=== PATIENT | male | born 1945 | race Caucasian/White ===

== ENCOUNTER 2016-12-21 09:50 | Emergency (ER) | payer MEDICAID ==
[~2016-12-21] VITALS: Ht 185.4 cm; Wt 94.5 kg
[2016-12-21 09:51] VITALS: BP 152/85; PULSE 63; RESP 16; TEMP 98.4; O2SAT 98
--- NOTE | 2016-12-21 10:01 | PD ---
HPI Chief Complaint: Skin Problem Time Seen by Provider: 10:01 Travel History International Travel<30 days: No Contact w/Intl Traveler<30days: No Traveled to known affect area: No History of Present Illness HPI 71-year-old male came to the emergency room for a right distal leg injury that' s not healing. Patient says this happened about 10 days ago at work. He was hit by a forklift. He tried to take care of the abrasion at home but has been on his feet the entire time at work every day and wears high boots which rubs against the abrasion. Now it has started to look infected. Also his foot and ankle swells up quite a bit by the end of the day. At night he tries to keep his leg elevated and in the morning it appears to be back to somewhat normal again. However the wound is not healing at this point and hence he is in the emergency room. He was slightly tachycardic but otherwise vital signs were stable. Patient says that he is otherwise a healthy person. He does not smoke. [facility] Past Medical History Narrative Medical List of his past medical, surgical, social history was reviewed from the nursing note. Social History Tobacco Use: No Allergies-Medications (Allergen,Severity, Reaction): Coded Allergies: Iodine (Verified Allergy, Unknown, Anaphylaxis, 12/21/16) Shellfish (Verified Allergy, Unknown, Anaphylaxis, 12/21/16) Comments List of his allergies reviewed from the nursing note. Reported Meds & Prescriptions Reported Meds & Active Scripts Active Bactrim DS (Sulfamethoxazole-Trimethoprim) 800-160 Mg Tab 1 Tab PO BID Narrative Medication Awaiting for the nurse to do the med reconciliation. Review of Systems Except as stated in HPI: all other systems reviewed are Neg Physical Exam Narrative GENERAL: Awake, alert, mild distress SKIN: Focused skin assessment warm/dry. Right lateral aspect of the distal part of the leg and the ankle is swollen, erythematous with a large scab in the center and some ulceration. There is some dried secretion from it. No active secretion currently. Distal pulses and sensation intact. The dorsum of the foot is slightly swollen and erythematous as well. HEAD: Atraumatic. Normocephalic. EYES: Pupils equal and round. No scleral icterus. No injection or drainage. ENT: No nasal bleeding or discharge. Mucous membranes pink and moist. NECK: Trachea midline. No JVD. CARDIOVASCULAR: Regular rate and rhythm. No murmur appreciated. RESPIRATORY: No accessory muscle use. Clear to auscultation. Breath sounds equal bilaterally. GASTROINTESTINAL: Abdomen soft, non-tender, nondistended. Hepatic and splenic margins not palpable. MUSCULOSKELETAL: No obvious deformities. No clubbing. No cyanosis. No edema. NEUROLOGICAL: Awake and alert. No obvious cranial nerve deficits. Motor grossly within normal limits. Normal speech. PSYCHIATRIC: Appropriate mood and affect; insight and judgment normal. Data Data Last Documented VS Vital Signs Date Time Temp Pulse Resp B/P Pulse Ox O2 Delivery O2 Flow Rate FiO2 12/21/16 10:36 Nasal Cannula 2 12/21/16 10:36 99 12/21/16 09:51 98.4 63 16 152/85 Orders Complete Blood Count With Diff (12/21/16 10:08) Comprehensive Metabolic Panel (12/21/16 10:08) Lactic Acid Sepsis Protocol (12/21/16 10:08) Blood Culture (12/21/16 10:08) Blood Glucose (12/21/16 10:08) Ecg Monitoring (12/21/16 10:08) Iv Access Insert/Monitor (12/21/16 10:08) Oximetry (12/21/16 10:08) Oxygen Administration (12/21/16 10:08) Vancomycin Inj (Vancomycin Inj) (12/21/16 10:08) Labs Laboratory Tests Test 12/21/16 10:15 White Blood Count 7.3 TH/MM3 Red Blood Count 4.65 MIL/MM3 Hemoglobin 14.5 GM/DL Hematocrit 41.0 % Mean Corpuscular Volume 88.1 FL Mean Corpuscular Hemoglobin 31.1 PG Mean Corpuscular Hemoglobin 35.3 % Concent Red Cell Distribution Width 12.9 % Platelet Count 187 TH/MM3 Mean Platelet Volume 8.0 FL Neutrophils (%) (Auto) 75.0 % Lymphocytes (%) (Auto) 14.8 % Monocytes (%) (Auto) 8.2 % Eosinophils (%) (Auto) 1.4 % Basophils (%) (Auto) 0.6 % Neutrophils # (Auto) 5.5 TH/MM3 Lymphocytes # (Auto) 1.1 TH/MM3 Monocytes # (Auto) 0.6 TH/MM3 Eosinophils # (Auto) 0.1 TH/MM3 Basophils # (Auto) 0.0 TH/MM3 CBC Comment DIFF FINAL Differential Comment Sodium Level 140 MEQ/L Potassium Level 4.1 MEQ/L Chloride Level 107 MEQ/L Carbon Dioxide Level 27.2 MEQ/L Anion Gap 6 MEQ/L Blood Urea Nitrogen 17 MG/DL Creatinine 0.80 MG/DL Estimat Glomerular Filtration 96 ML/MIN Rate Random Glucose 97 MG/DL Lactic Acid Level 1.3 mmol/L Calcium Level 9.0 MG/DL Total Bilirubin 0.6 MG/DL Aspartate Amino Transf 22 U/L (AST/SGOT) Alanine Aminotransferase 21 U/L (ALT/SGPT) Alkaline Phosphatase 109 U/L Total Protein 7.2 GM/DL Albumin 3.5 GM/DL MDM Medical Decision Making Medical Screen Exam Complete: Yes Emergency Medical Condition: Yes Differential Diagnosis Cellulitis, nonhealing ulcer Narrative Course 11:23 AM all the blood test results of back and within acceptable limits. Patient was given a dose of vancomycin and IV fluid. Given the CBC and the lactic acid I am comfortable discharging him home with oral antibiotics. Patient will get some work note for time off from work so that he can nurse the wound and let it heal. Procedures EKG Prior to Arrival: No Diagnosis Primary Impression: Cellulitis Qualified Code: L03.115 - Cellulitis of right lower extremity Additional Impression: Delayed wound healing Referrals: Primary Care Physician 3 days Additional Instructions: Please return to the ER if the condition worsens or any other concerns. Otherwise follow-up with her primary care. Take the medication as per the direction. Keep the leg elevated above the heart level as much as possible. Do not wear boot that can rub against the wound and prevent it from healing. You can allow it to air dry Med/Other Pt SpecificInfo: Prescription(s) given Scripts Sulfamethoxazole-Trimethoprim (Bactrim DS)800-160 Mg Tab1 Tab PO BID #20 TAB Ref 0 Prov:Silvia Betancourt MD 12/21/16 Disposition: 01 DISCHARGE HOME Condition: Stable Silvia Betancourt MD Dec 21, 2016 10:01
[2016-12-21] MEDS ORDERED: VANCOMYCIN INJ 1,000 MG in SODIUM CHLOR 0.9% 250 ML INJ 250 ML IV STA (10:08)
[2016-12-21 10:36] VITALS: O2SAT 99
[2016-12-21 10:42] LABS: AUTOMATED NEUTROPHIL # 5.5 TH/MM3 (1.8-7.7); BASOPHIL % 0.6 % (0.0-2.0); EOSINOPHIL # 0.1 TH/MM3 (0-0.4); EOSINOPHIL % 1.4 % (0.0-4.0); HEMO FLAGS DIFF FINAL; LYMPH % 14.8 % (9.0-44.0); LYMPHOCYTE # 1.1 TH/MM3 (1.0-4.8); MEAN CELL VOLUME 88.1 FL (80.0-100.0); MEAN CORPUSCULAR HEMOGLOBIN 31.1 PG (27.0-34.0); MEAN CORPUSCULAR HGB CONC 35.3 % (32.0-36.0); MONO % 8.2 % (0.0-8.0); PLATELET COUNT 187 TH/MM3 (150-450); RED BLOOD COUNT 4.65 MIL/MM3 (4.50-5.90); RED CELL DISTRIBUTION WIDTH 12.9 % (11.6-17.2); WHITE BLOOD COUNT 7.3 TH/MM3 (4.0-11.0)
[2016-12-21 11:01] LABS: ALT (GPT) 21 U/L (12-78); ANION GAP 6 MEQ/L (5-15); AST (GOT) 22 U/L (15-37); BICARBONATE 27.2 MEQ/L (21.0-32.0); BLOOD UREA NITROGEN 17 MG/DL (7-18); CHLORIDE 107 MEQ/L (98-107); GLOMERULAR FILTRATION RATE 96 ML/MIN (>89); POTASSIUM 4.1 MEQ/L (3.5-5.1); SODIUM (NA) 140 MEQ/L (136-145)
[2016-12-21 11:04] LABS: ALKALINE PHOSPHATASE 109 U/L (45-117); TOTAL BILIRUBIN ADULT 0.6 MG/DL (0.2-1.0)
[2016-12-21] MEDS ORDERED: BACT800T5 PO (11:25)
== END 2016-12-21 12:07 | disposition home or self-care (01) ==
LOC: NEPD 09:50
DX: L03.115 Cellulitis of right lower limb (principal); Z79.899 Other long term (current) drug therapy; R00.0 Tachycardia, unspecified
CPT/HCPCS: 80053; 83605; 85025; 87040; 96365; 99284; J3370; J7050

== ENCOUNTER 2017-01-01 18:57 | Observation (INO) | payer MEDICARE ==
[~2017-01-01] VITALS: Ht 185.4 cm; Wt 88.0 kg
[~2017-01-01 18:57] MED LIST: BACT800T5 PO
[2017-01-01 18:59] VITALS: BP 147/66; PULSE 66; RESP 16; TEMP 98.8; O2SAT 98
--- NOTE | 2017-01-01 20:34 | PD ---
Physical Exam Date Seen by Provider: Jan 01, 2017 Time Seen by Provider: 20:31 Narrative 71 y/o male December 21 seen here with cellulitis from a small cut at work. Patient sent here by his PCP to R/O Osteomyolytis. No Fever. Pain 07/07. Vital signs reviewed. Patient stable. Awaiting Bed placement. Data Data Last Documented VS Vital Signs Date Time Temp Pulse Resp B/P Pulse Ox O2 Delivery O2 Flow Rate FiO2 01/01/17 18:59 98.8 66 16 147/66 98 Room Air [facility] Medical Record Reviewed: Yes Supervised Visit with SAMMIE: Yes Condition: Stable Lanre Carroll Jan 01, 2017 20:34
[2017-01-01 21:41] VITALS: BP 178/60; PULSE 57; RESP 19; O2SAT 99
[2017-01-01] MEDS ORDERED: SODIUM CHLORIDE 0.9% FLUSH 10 ML FLUSH IVF PRN (21:45)
--- NOTE | 2017-01-01 21:50 | PD ---
HPI Chief Complaint: Skin Problem Time Seen by Provider: 21:42 Travel History International Travel<30 days: No Contact w/Intl Traveler<30days: No Traveled to known affect area: No History of Present Illness HPI Patient is a 71-year-old male presenting to the emergency department for evaluation of a left ankle infection. He states that his primary doctor sent him to the emergency department to rule out osteomyelitis. Patient states that his left ankle was pierced with a wood pallet 2 weeks ago. He attempted to care for the wound at home and then was finally evaluated in the emergency department on 12/21/16, he states he was prescribed antibiotics which he completed a full course of on December 30. He denies any fever, chills, nausea, vomiting, chest pain, foul odor or drainage, increased pain or redness. He reports that the wound actually appears to be healing however he was not given wound care instructions and has not been applying any antibiotic ointment or dressings. [facility] Past Medical History Medical History: Denies Significant Hx Immunizations Current: Yes Tetanus Vaccination: Unknown Past Surgical History Surgical History: No Previous Surgery Social History Alcohol Use: Yes Tobacco Use: No Substance Use: Yes (OCCASIONALLY MARIJUANA) Allergies-Medications (Allergen,Severity, Reaction): Coded Allergies: Iodine (Verified Allergy, Unknown, Anaphylaxis, 01/01/17) Shellfish (Verified Allergy, Unknown, Anaphylaxis, 01/01/17) Reported Meds & Prescriptions Reported Meds & Active Scripts Active No Active Prescriptions or Reported Medications Review of Systems Except as stated in HPI: all other systems reviewed are Neg Skin: Positive Change in Pigmentation, Positive Other (abrasion left inner ankle) Physical Exam Narrative GENERAL: Well-developed, well-nourished, alert elderly male. Resting comfortably in no acute distress SKIN: Warm and dry. 3cm x 5cm abrasion with surrounding purple induration to medial left ankle. HEAD: Atraumatic. Normocephalic. EYES: Pupils equal and round. No scleral icterus. No injection or drainage. ENT: No nasal bleeding or discharge. Mucous membranes pink and moist. NECK: Trachea midline. No JVD. CARDIOVASCULAR: Regular rate and rhythm. RESPIRATORY: No accessory muscle use. Clear to auscultation. Breath sounds equal bilaterally. GASTROINTESTINAL: Abdomen soft, non-tender, nondistended. Hepatic and splenic margins not palpable. MUSCULOSKELETAL: Extremities without clubbing, cyanosis, or edema. No obvious deformities. NEUROLOGICAL: Awake and alert. No obvious cranial nerve deficits. Motor grossly within normal limits. Five out of 5 muscle strength in the arms and legs. Normal speech. 2+ dorsalis pedis pulses bilaterally. PSYCHIATRIC: Appropriate mood and affect; insight and judgment normal. Data Data Last Documented VS Vital Signs Date Time Temp Pulse Resp B/P Pulse Ox O2 Delivery O2 Flow Rate FiO2 01/01/17 21:41 57 19 178/60 99 Room Air 01/01/17 18:59 98.8 Orders Basic Metabolic Panel (Bmp) (01/01/17 21:38) Complete Blood Count With Diff (01/01/17 21:38) Blood Culture (01/01/17 21:38) Wound Culture And Gram Stain (01/01/17 21:38) Sodium Chloride 0.9% Flush (Ns Flush) (01/01/17 21:45) Westergren Sedimentation Rate (01/01/17 21:38) C-Reactive Protein (Crp) (01/01/17 21:38) Ankle, Complete ([id number]) (01/01/17 ) Iv Access Insert/Monitor (01/01/17 21:38) Vancomycin Inj (Vancomycin Inj) (01/01/17 22:45) Admit Order (Ed Use Only) (01/01/17 23:10) Labs Laboratory Tests Test 01/01/17 21:45 White Blood Count 5.9 TH/MM3 Red Blood Count 4.90 MIL/MM3 Hemoglobin 14.9 GM/DL Hematocrit 43.9 % Mean Corpuscular Volume 89.5 FL Mean Corpuscular Hemoglobin 30.4 PG Mean Corpuscular Hemoglobin 33.9 % Concent Red Cell Distribution Width 12.7 % Platelet Count 193 TH/MM3 Mean Platelet Volume 7.5 FL Neutrophils (%) (Auto) 48.4 % Lymphocytes (%) (Auto) 35.5 % Monocytes (%) (Auto) 11.0 % Eosinophils (%) (Auto) 4.3 % Basophils (%) (Auto) 0.8 % Neutrophils # (Auto) 2.9 TH/MM3 Lymphocytes # (Auto) 2.1 TH/MM3 Monocytes # (Auto) 0.6 TH/MM3 Eosinophils # (Auto) 0.3 TH/MM3 Basophils # (Auto) 0.0 TH/MM3 CBC Comment DIFF FINAL Differential Comment Sodium Level 137 MEQ/L Potassium Level 4.0 MEQ/L Chloride Level 103 MEQ/L Carbon Dioxide Level 28.9 MEQ/L Anion Gap 5 MEQ/L Blood Urea Nitrogen 12 MG/DL Creatinine 0.99 MG/DL Estimat Glomerular Filtration 75 ML/MIN Rate Random Glucose 87 MG/DL Calcium Level 8.6 MG/DL C-Reactive Protein 0.91 MG/DL MDM Medical Decision Making Medical Screen Exam Complete: Yes Emergency Medical Condition: Yes Interpretation(s) Vital Signs Date Time Temp Pulse Resp B/P Pulse Ox O2 Delivery O2 Flow Rate FiO2 01/01/17 18:59 98.8 66 16 147/66 98 Room Air Differential Diagnosis Normal healing versus cellulitis versus osteomyelitis versus other Narrative Course Patient is a 71-year-old male presenting for evaluation/rule out osteomyelitis on the advice of his primary care provider. Patient vital signs are stable, IV access established, labs and imaging ordered and pending. Patient is not diabetic, hypertensive, he has no circulatory issues. He does not appear cellulitic. Blood and wound cultures ordered and pending CBC is unremarkable Chemistry with no acute findings CRP 0.91 ESR is pending Vancomycin 1 g IV ordered X-ray of left ankle shows no acute bony abnormality, mild soft tissue swelling at the ankle. This was read by the radiologist. Care of patient transferred to my attending physician at the end of my shift, he will determine patients disposition. Scripts No Active Prescriptions or Reported Meds Condition: Stable Natalya Sanchez Jan 01, 2017 21:50
[2017-01-01 22:23] LABS: BICARBONATE 28.9 MEQ/L (21.0-32.0)
[2017-01-01 22:33] LABS: AUTOMATED NEUTROPHIL # 2.9 TH/MM3 (1.8-7.7); BASOPHIL % 0.8 % (0.0-2.0); EOSINOPHIL # 0.3 TH/MM3 (0-0.4); EOSINOPHIL % 4.3 % (0.0-4.0); HEMATOCRIT 43.9 % (39.0-51.0); HEMO FLAGS DIFF FINAL; LYMPH % 35.5 % (9.0-44.0); LYMPHOCYTE # 2.1 TH/MM3 (1.0-4.8); MEAN CELL VOLUME 89.5 FL (80.0-100.0); MEAN CORPUSCULAR HEMOGLOBIN 30.4 PG (27.0-34.0); MEAN CORPUSCULAR HGB CONC 33.9 % (32.0-36.0); NEUT % 48.4 % (16.0-70.0); PLATELET COUNT 193 TH/MM3 (150-450); RED CELL DISTRIBUTION WIDTH 12.7 % (11.6-17.2); WHITE BLOOD COUNT 5.9 TH/MM3 (4.0-11.0)
--- NOTE | 2017-01-01 22:41 | RADRPT ---
EXAM DATE/TIME: 01/01/2017 22:17 [facility] COMPARISON: No previous studies available for comparison. INDICATIONS : Left ankle pain, possible infection. MEDICAL HISTORY : None. SURGICAL HISTORY : None. ENCOUNTER: Initial ACUITY: 1 month PAIN SCORE: 1/10 LOCATION: Left medial ankle. FINDINGS: Three view exam was performed of the left ankle. The bony structures are in normal alignment. No ev idence of fracture, dislocation. The ankle mortise is intact. No radiopaque foreign bodies are seen. Bony mineralization is normal. CONCLUSION: No acute bony abnormality. Mild soft tissue swelling at the ankle. Matt Drake MD on January 01, 2017 at 22:39 Board Certified Radiologist. This report was verified electronically.
[2017-01-01] MEDS ORDERED: VANCOMYCIN INJ 1,000 MG in SODIUM CHLOR 0.9% 250 ML INJ 250 ML IV ONE (22:45)
--- NOTE | 2017-01-01 22:59 | PD ---
Data Data Last Documented VS Vital Signs Date Time Temp Pulse Resp B/P Pulse Ox O2 Delivery O2 Flow Rate FiO2 01/01/17 21:41 57 19 178/60 99 Room Air 01/01/17 18:59 98.8 Orders Basic Metabolic Panel (Bmp) (01/01/17 21:38) Complete Blood Count With Diff (01/01/17 21:38) Blood Culture (01/01/17 21:38) Wound Culture And Gram Stain (01/01/17 21:38) Sodium Chloride 0.9% Flush (Ns Flush) (01/01/17 21:45) Westergren Sedimentation Rate (01/01/17 21:38) C-Reactive Protein (Crp) (01/01/17 21:38) Ankle, Complete ([id number]) (01/01/17 ) Iv Access Insert/Monitor (01/01/17 21:38) Vancomycin Inj (Vancomycin Inj) (01/01/17 22:45) Labs Laboratory Tests Test 01/01/17 21:45 White Blood Count 5.9 TH/MM3 Red Blood Count 4.90 MIL/MM3 Hemoglobin 14.9 GM/DL Hematocrit 43.9 % Mean Corpuscular Volume 89.5 FL Mean Corpuscular Hemoglobin 30.4 PG Mean Corpuscular Hemoglobin 33.9 % Concent Red Cell Distribution Width 12.7 % Platelet Count 193 TH/MM3 Mean Platelet Volume 7.5 FL Neutrophils (%) (Auto) 48.4 % Lymphocytes (%) (Auto) 35.5 % Monocytes (%) (Auto) 11.0 % Eosinophils (%) (Auto) 4.3 % Basophils (%) (Auto) 0.8 % Neutrophils # (Auto) 2.9 TH/MM3 Lymphocytes # (Auto) 2.1 TH/MM3 Monocytes # (Auto) 0.6 TH/MM3 Eosinophils # (Auto) 0.3 TH/MM3 Basophils # (Auto) 0.0 TH/MM3 CBC Comment DIFF FINAL Differential Comment Sodium Level 137 MEQ/L Potassium Level 4.0 MEQ/L Chloride Level 103 MEQ/L Carbon Dioxide Level 28.9 MEQ/L Anion Gap 5 MEQ/L Blood Urea Nitrogen 12 MG/DL Creatinine 0.99 MG/DL Estimat Glomerular Filtration 75 ML/MIN Rate Random Glucose 87 MG/DL Calcium Level 8.6 MG/DL C-Reactive Protein 0.91 MG/DL [facility] Supervised Visit with SAMMIE: Yes Narrative Course I, Dr. Faulkner, have reviewed the advance practice practitioner's documentation and am in agreement, met with the patient face to face, made the diagnosis, and the medical decision making was done by me. See her note for further details. Briefly this is a 71-year-old male who was sent in by his primary care physician for evaluation of left leg/ankle wound and possible osteomyelitis. The patient sustained the wound initially while at work from a crush injury/ puncture wound in mid November. The wound became infected, and the patient was seen in the emergency department on 12/21/16 and started on Bactrim. Patient reports that the amount of swelling has significantly improved, however the wound has persisted, as well as the pain. Pain is moderate, constant, worse with movement and palpation. He is able to ambulate. No history of peripheral vascular disease or diabetes. He is a nonsmoker. On physical exam the patient has a moderate sized left medial/distal leg wound, superficial with scab/ granulation tissue, with a moderate sized area of surrounding warmth and erythema. There are no red streaks. No purulent drainage. No fluctuance or induration. Bilateral dorsalis pedis pulses are brisk and equal. Vital signs show heart rate 66, blood pressure 147/66, pulse ox 98% on room air , oral temp of 98.8F. CBC is unremarkable. BMP is unremarkable. CRP is 0.91. Left ankle x-ray: No acute bony abnormality. Mild soft tissue swelling at the ankle. Patient was made aware of all findings. He was given a dose of IV vancomycin. Patient still has significant area of surrounding cellulitis and warmth as well as tenderness to the wound. There is no purulent drainage. He finished a course of Bactrim 2 days ago. Given ongoing wound/cellulitis, the patient was given a dose of IV vancomycin and will be admitted for further treatment and evaluation of left ankle wound/cellulitis/failed outpatient therapy. Case discussed with [facility] hositalist BELA Donovan. Patient will be admitted to their service under Dr. Stinson. Diagnosis Primary Impression: Left leg cellulitis Additional Impression: Failure of outpatient treatment Admitting Information Admitting Physician Requests: Observation Condition: Stable Onur Faulkner MD Jan 01, 2017 22:59
[2017-01-02 00:30] VITALS: BP 137/93; PULSE 48; RESP 16; O2SAT 99
[2017-01-02] MEDS ORDERED: BISACODYL 10 MG SUPP RECTAL PRN (01:00)
[2017-01-02] MEDS ORDERED: NALOXONE HCL 0.4 MG/ML AMP IV PRN (01:00)
[2017-01-02] MEDS ORDERED: SODIUM CHLORIDE 0.9% FLUSH 10 ML FLUSH IV FLUSH PRN (01:00)
[2017-01-02] MEDS ORDERED: ACETAMINOPHEN 325 MG TAB PO PRN (01:00)
[2017-01-02] MEDS ORDERED: SENNOSIDES 8.6 MG TAB PO PRN (01:00)
[2017-01-02] MEDS ORDERED: ONDANSETRON HCL 4 MG/2 ML VIAL IVP PRN (01:00)
[2017-01-02] MEDS ORDERED: Vancomycin Consult Pharmacy 1 EA OTHER SCH (01:00)
[2017-01-02] MEDS: HEPARIN SODIUM - SQ 10,000 UNITS/ML VIAL SQ SCH ×3 (01:17→22:23)
[2017-01-02] MEDS: SODIUM CHLOR 0.9% 1000 ML INJ 1,000 ML IV SCH ×3 (01:17→22:30)
[2017-01-02 01:54] VITALS: O2SAT 99
[2017-01-02 02:08] VITALS: BP 167/91; PULSE 43; RESP 18; TEMP 97.6; O2SAT 98
[2017-01-02 07:38] VITALS: BP 145/83; PULSE 50; RESP 20; TEMP 97.6; O2SAT 97
[2017-01-02] MEDS: SODIUM CHLORIDE 0.9% FLUSH 10 ML FLUSH IV FLUSH SCH ×2 (08:40→22:23)
[2017-01-02] MEDS: FAMOTIDINE 20 MG TAB PO SCH ×2 (08:40→22:23)
[2017-01-02] MEDS ORDERED: PNEUMOCOCCAL POLYVALENT INJ 25 MCG/0.5 ML SYR IM ONE (09:00)
[2017-01-02] MEDS: VANCOMYCIN INJ 1,500 MG in SODIUM CHLORID 0.9% 500 ML INJ 500 ML IV SCH ×2 (10:48→22:28)
--- NOTE | 2017-01-02 12:13 | PD.WCN.NOT ---
Wound Consult Description: L medial lower leg Communicated with: JANEL Paulino [facility] Recommendation: Please cleanse wound to L medial leg with normal saline and apply single layer Xeroform just over open wound. Leave periwound scabs open to air. Secure dressing with dry 4 x4 gauze pads, rolled gauze and tape. Change dressing every other day or PRN if saturated or dislodged. Patient may need out patient wound care service. Additional Information: Patient seen on [facility] pod for evaluation of wound to L distal medial tibia. Wound is open to air. Wound bed presents with dry dark red tissue that is without active drainage or odor. Periwound is noted with diffuse dry intact scabs and erythema.Wound measures 8cm x 4cm x ~0.1cm. L leg is slightly edematous. Patient states, "This wound won't heal,but it has gotten better since they started the antibiotics. The swelling and the redness have gone down. " Cleansed wound with normal saline and applied Xeroform single layer just over open wound bed. Covered with dry 4x4 gauze pads and secured with rolled gauze and tape.Explained procedure to patient. Patient is concerned with taking care of wound at home. Has no one to help with wound care and he feels like he needs assistance.Patient could benefit from out patient wound care services. Jennifer Garcia [facility] Jan 02, 2017 12:13
[2017-01-02] MEDS ORDERED: GADODIAMIDE PF 287 MG/ML 20 ML VIAL (for RAD MRI) IV ONE (13:24)
--- NOTE | 2017-01-02 13:41 | MH ---
cc: BARRERA WALLS MD DATE OF ADMISSION 01/01/[address] Mark Abdalla CHIEF COMPLAINT Infection in the left ankle. HISTORY OF PRESENT ILLNESS This is a pleasant 71 year-old male who had a wound on his left ankle when he was bumped by a forklift and hit a wooden pallet which gave him a small laceration. It progressively got worse. He developed erythema which spread down to his foot and up into his mid medial mccollum. He ended up coming to the emergency room on 12/21. He was given a prescription for Bactrim and finished this on 12/29/2016. The erythema did improve, however, the wound still remained quite large and there was still some surrounding erythema. He has some discomfort when he first stands up as he feels his leg swelling causing the skin to be tight. Pain improves with rest. His mucous membranes are pink. He is not having fever or chills. Nausea and vomiting remain stable. He denies any other specific changes in his overall health. MEDICATIONS On admission, none. ALLERGIES IODINE AND SHELLFISH. PAST MEDICAL HISTORY The patient denies any previous medical problems. He takes no prescription medications. PAST SURGICAL HISTORY The patient denies any surgeries. FAMILY HISTORY He is adopted. SOCIAL HISTORY Tobacco, none. Alcohol, social. He works in a pharmaceutical plan. He is not . REVIEW OF SYSTEMS The patient states because his job is very physical with a lot of walking in the heat, he moves about boxes of about 20 pounds over the past seven to eight months. He is up-to-date on pneumonia and shingles vaccine. He is not up-to-date on his flu vaccine. He is not up-to-date on his colonoscopy. A 10-point review of systems otherwise has no other pertinent findings. PHYSICAL EXAM VITAL SIGNS: He is afebrile, heart rate 43, respirations 18, blood pressure 107/91. GENERAL: This is a 71 year-old male who is admitted today in no distress. HEAD, EYES, EARS, NOSE, AND THROAT: Mucous membranes are moist. No jaundice. NECK: Supple. CARDIOVASCULAR: Bradycardia (during my interview heart rate was in the 50's). RESPIRATORY: Lungs are clear. GASTROINTESTINAL: Bowel sounds are present. No guarding, tenderness or rebound. GENITOURINARY: No CVA tenderness. No suprapubic tenderness. MUSCULOSKELETAL: The right lower extremity is within normal limits. Distal pulses are palpable. The left lower extremity shows a roughly 10 x 7 cm scabbed wound on the medial distal mccollum just proximal to the medial malleolus. There is some mild surrounding erythema and swelling. No open areas or drainage at this time. Pulses are palpable. No signs of gangrenous changes. NEUROLOGIC: Awake, alert and oriented times four. Speech is fluent. Moving all extremities freely. INVESTIGATIONS White count is 5.9, hemoglobin is 14.9, platelets are 193. Sodium 137, potassium 4, c-reactive protein is 0.91. X-ray of the ankle showed no acute bony abnormality. Soft tissue swelling at the ankle. IMPRESSION 1. Cellulitis in the left lower extremity. 2. Wound on the left lower extremity. 3. Elevated C-reactive protein. DISCUSSION The patient is placed on observation status by Dr. Walls's service. The plan is to keep the patient on IV Vancomycin. We will check an MRI of the injury site to rule out any deeper infection including osteomyelitis. DVT and GI prophylaxis will be provided. Wound care will be consulted and further recommendations will be made as the case progresses. His anticipated length of stay is 48 hours. Anticipate discharge to home. Dictated by: BELA Tamayo MD ANANTH Zarate/VILLA /3:39 AM /1:17 PM seen, examined by myself, Dr Walls, today Discussed with patient Dry ulcer around the medial aspect of the left ankle He was started on antibiotics Xeroform dressing in place will follow Discussed with mid level provider The exam, history, and the medical decision-making described in the above note were completed with the assistance of the mid-level provider. I reviewed the findings presented. I attest that I had a [id number] encounter with the patient on the same day, and personally performed and documented my assessment and findings in the medical record. ANDREW
--- NOTE | 2017-01-02 13:55 | RADRPT ---
EXAM DATE/TIME: 01/02/2017 12:55 [facility] COMPARISON: No previous studies available for comparison. INDICATIONS : Cellulitis. Wound to medial left ankle. Injury 1 month ago. CONTRAST: 17 cc Omniscan (gadodiamide) IV MEDICAL HISTORY : Hypertension. SURGICAL HISTORY : Umbilical hernia repair. ENCOUNTER: Subsequent ACUITY: 1 month PAIN SCORE: 3/10 LOCATION: Left medial ankle. TECHNIQUE: Multiplanar multisequence MRI examination of the lower leg was performed with and without contrast. FINDINGS: BONE/CARTILAGE: Bone marrow signal is homogeneous. Articular cartilage signal is within normal limits. MUSCLES/TENDONS: All of the visualized muscles and tendons are intact. MISCELLANEOUS: There is nonspecific edema in the subcutaneous soft tissues along the medial lower leg. No loculated fluid collections are demonstrated. POST-CONTRAST: There are no abnormal areas of enhancement on the post-contrast images. CONCLUSION: There is nonspecific edema in the subcutaneous soft tissues along the medial left lower leg. The find ings would suggest cellulitis. No evidence of osteomyelitis. No loculated fluid collections are demon strated. Cirilo Garcia MD on January 02, 2017 at 13:51 Board Certified Radiologist. This report was verified electronically.
[2017-01-02 14:43] VITALS: BP 142/69; PULSE 50; RESP 18; TEMP 97.6; O2SAT 95
--- NOTE | 2017-01-02 16:20 | MH ---
cc: BARRERA WALLS MD DATE OF ADMISSION 01/01/2017 Date of admission 01/02/2017 DATE OF 1945 CHIEF COMPLAINT Lower ankle injury and cellulitis. Travel in the last 30 days is none. HISTORY OF PRESENT ILLNESS This is a pleasant, well-nourished 71-year-old white male who had an injury at work with a wood pallet that was accidentally pushed into him on December 21. The patient came to the emergency room, was treated and went home with a treatment regimen including antibiotics for 10 days. The patient still works and is very active and went back to work and states that he stands on his feet and walking 10 hours a day on concrete. In approximately 10 days he noted that his ankle was beginning to swell and become painful, and he noted erythema around the edges. He states that the initial injury was very small but now has grown significantly in size. The abrasion is dry but looks like it has drained recently. It is noted to be approximately 3 cm x 5 cm with some dark induration and erythema noted around the edges. The patient denied any other complaints of chest pain, shortness of breath. No GI distress. The patient states that his appetite is usually normal but he has noted a decreased appetite and decreased p.o. intake for the last couple of days. PAST MEDICAL HISTORY 1. Social ethyl alcohol. 2. Hernias. PAST SURGICAL HISTORY Hernia times two repair. ALLERGIES IODINE AND SHELLFISH. MEDICATIONS Noted. No active reported meds. SOCIAL HISTORY The patient lives alone. He does have social beer intake probably monthly. Denies any tobacco. Occasional social marijuana use. REVIEW OF SYSTEMS A 12-point review was obtained, positives noted in the history of present illness which chiefly surround the left ankle injury and induration. PHYSICAL EXAMINATION VITAL SIGNS: Temperature is 97.6, pulse is 50, has been as low as 43, has been as high as 57. Respirations 20, blood pressure 145/83. At 0200 167/91. O2 saturation 97% currently on room air. GENERAL: Well-nourished, well-developed white male looks younger than his stated age, resting on a stretcher. SKIN: Warm and dry except for the abrasion and induration around the inner aspect of the left ankle, noted to be 3 cm x 5 cm. HEENT: Atraumatic, normocephalic. [place]. No nasal discharge. Mucous membranes are pink and moist. NECK: Supple. CARDIOVASCULAR: S1-S2. Rhythm is slow. No audible murmurs, rubs or gallops. RESPIRATORY: The respiratory rate essentially clear anteriorly and posteriorly. GASTROINTESTINAL: Abdomen is soft, nontender, nondistended. Active bowel sounds. GENITOURINARY: Note that urine is orange and dark. MUSCULOSKELETAL: He can move all the extremities with purpose. He is slightly guarding that left lower leg due to the injury. NEUROLOGIC: Awake, alert, good historian. Normal speech. PSYCHIATRIC: Mood and affect are appropriate. LABORATORY DATA Diagnostic data WBC count 5.9, RBC 4.9 hemoglobin 14.9, hematocrit 43.9, platelet count 193. Monocyte count 11, eosinophils 4.3. Sodium 137, potassium 4.0, chloride 103, BUN 12, creatinine 0.99, GFR 75. C-reactive protein 0.91. IMAGING Imaging studies show no bony abnormality at the left ankle, mild soft tissue swelling is positive. ASSESSMENT/PLAN 1. Left ankle cellulitis with delayed wound healing, failed outpatient therapy. 2. Elevated C-reactive protein level. 3. Occasionally ethyl alcohol usage along with occasional social marijuana use. 4. Decreased p.o. intake. 5. Rule out osteomyelitis. Our plan is to admit. We will follow his meds. Place him on Pepcid for peptic ulcer disease prophylaxis. Start him on vancomycin IV and consult wound care for their expert opinion. We will MRI the lower leg to rule out any type of bone infection or osteomyelitis. Vital signs will be q.4h and as warranted. Heart healthy diet. IV fluids to maintain hydration. Heparin subcutaneous for deep venous thrombosis prophylaxis. We will monitor bowel regimen. The patient is full code, full aggressive care. His course of treatment will be based on the findings of his tests over the next 24 hours. Dictated by: LEO Hunter ` MD ANANTH Zarate/DARA /10:20 AM /3:38 PM
[2017-01-02 20:18] VITALS: BP 138/78; PULSE 51; RESP 18; TEMP 98.4; O2SAT 98
[2017-01-03] VITALS (8 sets, daily range): BP systolic 128–154; BP diastolic 69–84; PULSE 40–53; RESP 16–18; TEMP 97.4–98.8; O2SAT 95–98
[2017-01-03] MEDS: SODIUM CHLOR 0.9% 1000 ML INJ 1,000 ML IV SCH ×2 (06:51→16:51)
[2017-01-03] MEDS: SODIUM CHLORIDE 0.9% FLUSH 10 ML FLUSH IV FLUSH SCH ×2 (08:33→21:36)
[2017-01-03] MEDS: FAMOTIDINE 20 MG TAB PO SCH ×2 (08:33→21:00)
--- NOTE | 2017-01-03 08:38 | HHI.PR ---
Subjective History of Present Illness Patient feel better MRI negative for Osteomylitis. Infectious disease consulted. d/w RN. Review of Systems Integumentary Skin: Wounds Skin Remarks wound left lower extremity and redness Vitals/Results Intake & Output 01/02/17 01/02/17 01/03/17 14:59 22:59 06:59 Intake Total 25 ml 200 ml Output Total 400 ml Balance 25 ml -400 ml 200 ml Intake Oral 25 ml 200 ml Output Urine Total 400 ml Vital Signs Vital Signs Date Time Temp Pulse Resp B/P Pulse Ox O2 Delivery O2 Flow Rate FiO2 01/03/17 07:24 98.1 42 16 142/69 97 01/03/17 06:15 97.4 45 18 128/73 98 01/03/17 00:14 98.8 45 18 148/84 98 01/02/17 20:18 98.4 51 18 138/78 98 01/02/17 19:34 21 01/02/17 14:43 97.6 50 18 142/69 95 CBC/BMP: 01/01/17 2145 01/03/17 0444 Lab Results Laboratory Tests Test 01/03/17 04:44 Creatinine 0.84 MG/DL Estimat Glomerular Filtration 91 ML/MIN Rate Physical Exam General General Appearance: Well Developed, Well Nourished, No Acute Distress, Comfortable Eyes Eye Exam: Sclera White, Extraocular Movement Intact Throat Throat Exam: Oral Mucosa [place] & Moist, Oral Pharynx Normal Neck Neck Exam: Neck Supple, Trachea Midline Pulmonary Resp Exam: Clear Bilaterally, Breath Sounds Equal Cardiology CV Exam: Regular, Normal Sinus Rhythm Gastrointestinal/Abdomen GI Exam: Soft, Non-Tender, Bowel Sounds Present Musculoskeletal MS Exam: Normal Tone Integumentary Skin Exam: Warm Skin Remarks wound left lower extremity erythema/ tenderness. Extremeties Extremities Exam: No Edema Extremeties Remarks wound left lower extremity erythema/ tenderness. Neurologic Neuro Exam: Alert, Awake, Oriented, Speech Clear, Moving All Extremities, No Focal Deficits Psychiatric Psych Exam: Appropriate Responses VTE Prophylaxis VTE Prophylaxis Meds: Heparin PUD Prophylasis PUD Prophylaxis: Protonix Assessment/Plan Assessment/Plan IMPRESSION 1. Cellulitis in the left lower extremity. 2. Wound on the left lower extremity. 3. Elevated C-reactive protein. PLAN. patient on IV Vancomycin. Added Zosyn Infectious disease consulted..checked an MRI of the left lower extremity shows no osteomyelitis. DVT Prophylaxis Heparin 5000 units subcutaneous BID and GI prophylaxis famotidine . Wound care following. and further recommendations will be made as the case progresses. Discussed Condition with: Patient Mark Abdalla MD Jan 03, 2017 08:38
[2017-01-03] MEDS: VANCOMYCIN INJ 1,500 MG in SODIUM CHLORID 0.9% 500 ML INJ 500 ML IV SCH (10:50)
[2017-01-03] MEDS: HEPARIN SODIUM - SQ 10,000 UNITS/ML VIAL SQ SCH (13:00)
[2017-01-03] MEDS ORDERED: PIPERACIL-TAZO 4.5 GM PREMIX 100 ML IV SCH (14:00)
--- NOTE | 2017-01-03 16:02 | PD.CONS ---
History of Present Illness Service Infectious disease Consult Requested By Dr Jackie Abdalla Reason for Consult Evaluate patient with left leg cellulitis Primary Care Physician Mark Abdalla MD Diagnoses: History of Present Illness Patient seen and examined. Records reviewed Patient is a 71-year-old male, admitted to the hospital for further evaluation of his left leg wound. He apparently sustained a small wound on his left leg while at work around the middle of November. There was a stack of wood pallet and he hit it. He was putting some topical treatment and about the end of November he started developing pain and redness in the area, and the wound started getting bigger.. He apparently went to an urgent care center and he was given on antibiotics. There was improvement in his wound. He went to see his primary care physician, and the patient was instructed to go the emergency room for further evaluation and treatment. Patient stated that overall the wound is much improved compared to about a week or so ago. There's been no fever or chills. On admission his WBC has been normal. MRI did not show any evidence of fluid collection or bone involvement. Overall culture was done and it growing group B strep. Patient has been getting vancomycin and Zosyn. Infectious disease consultation is requested to evaluate the patient. Review of Systems Constitutional: DENIES: Fatigue, Fever, Chills Eyes: DENIES: Eye pain Ears, nose, mouth, throat: DENIES: Nasal discharge, Oral lesions, Throat pain, Ear Pain, Sinus Pain Respiratory: DENIES: Cough, Shortness of breath Cardiovascular: DENIES: Chest pain, Palpitations, Syncope Gastrointestinal: DENIES: Abdominal pain, Constipation, Diarrhea, Nausea, Vomiting Genitourinary: DENIES: Hematuria, Dysuria Musculoskeletal: DENIES: Joint pain, Joint Swelling Integumentary: DENIES: Rash Neurologic: DENIES: Headache Psychiatric: DENIES: Hallucinations Past Family Social History Allergies: Coded Allergies: Iodine (Verified Allergy, Unknown, Anaphylaxis, 01/01/17) Shellfish (Verified Allergy, Unknown, Anaphylaxis, 01/01/17) Past Medical History Unremarkable Past Surgical History Non- Active Ordered Medications Tylenol Dulcolax Pepcid Heparin Zofran Vancomycin Zosyn [place] Family History He is adopted Social History Denies smoking Drinks alcohol socially No illicit drugs Physical Exam Vital Signs Vital Signs Date Time Temp Pulse Resp B/P Pulse Ox O2 Delivery O2 Flow Rate FiO2 01/03/17 15:47 98.6 48 16 154/75 98 01/03/17 11:28 98.4 53 16 145/72 97 01/03/17 09:58 21 01/03/17 07:24 98.1 42 16 142/69 97 01/03/17 06:15 97.4 45 18 128/73 98 01/03/17 00:14 98.8 45 18 148/84 98 01/02/17 20:18 98.4 51 18 138/78 98 01/02/17 19:34 21 Physical Exam GENERAL: Patient is a well-nourished, well-developed CM, awake and alert, not in respiratory distress. SKIN: Warm and dry. No generalized rash, no ecchymoses and no evidence of embolic lesions. HEAD: Atraumatic. Normocephalic. No temporal wasting, or tenderness. EYES: [place] conjunctiva. No petechia or hemorrhage. Pupils equal, round and reactive to light. Extraocular movements full and intact. No scleral icterus. No injection or drainage. EARS, NOSE AND THROAT: Nose without bleeding or purulent nasal discharge. No sinus tenderness. Mucous membranes pink and moist. No oral lesions noted. No exudate. No oral thrush. NECK: Trachea midline. Supple and not tender, no meningeal signs CARDIOVASCULAR: Regular rate and rhythm. No murmurs, rubs or gallops heard RESPIRATORY: Clear to auscultation. Breath sounds equal bilaterally. No rales , wheezing or rhonchi ABDOMEN: Soft, non-tender, nondistended. Bowel sounds present and normoactive. No guarding. No rebound. No organomegaly. EXTREMITIES: No clubbing, cyanosis, or edema. No joint effusion, has good ROM. No calf tenderness. Well perfused and warm. He has small varicosities in both distal legs and feet. L ankle, there is a wound about 2 x 1.5 inch size with an eschar and has small opening in middle with some yellow red fluid, there is periwound area of dark red color that lightened in color when I lifted his LLE, and has indurated skin around the wound. No lymphangitis. No odor, no purulence. NEUROLOGICAL: Awake and alert. Cranial nerves grossly intact. Motor grossly within normal limits. PSYCHIATRIC: Normal affect, calm and cooperative. LINE: No evidence of infection Laboratory Laboratory Tests Test 01/03/17 04:44 Creatinine 0.84 Estimat Glomerular Filtration 91 Rate Date/Time Procedure Status Source Growth 01/01/17 21:50 Aerobic Blood Culture - Preliminary Resulted Blood Peripheral NO GROWTH IN 2 DAYS 01/01/17 21:50 Anaerobic Blood Culture - Preliminary Resulted Blood Peripheral NO GROWTH IN 2 DAYS 01/01/17 21:45 Gram Stain - Final Complete Wound Ankle 01/01/17 21:45 Wound Culture - Final Complete Group B Beta Strep Result Diagram: 01/01/17 2145 01/03/17 0444 Imaging RADIOLOGY STUDIES/FILMS REVIEWED Last Impressions Lower Extremity MRI 01/02/17 0000 Signed Impressions: Service Date/Time: Monday, January 02, 2017 12:55 - CONCLUSION: There is nonspecific edema in the subcutaneous soft tissues along the medial left lower leg. The findings would suggest cellulitis. No evidence of osteomyelitis. No loculated fluid collections are demonstrated. Cirilo Garcia MD Ankle X-Ray 01/01/17 0000 Signed Impressions: Service Date/Time: Sunday, January 01, 2017 22:17 - CONCLUSION: No acute bony abnormality. Mild soft tissue swelling at the ankle. Matt Drake MD Assessment and Plan Assessment and Plan IMPRESSION Wound L lateral ankle with improving cellulitis, C/S GBS Has a lot of superficial varicosities not legs and feet RECOMMENDATION Get podiatry wound care consult Santyl oint to wound until seen by podiatry IV Rocephin Should be ok to D/C tomorrow once seen by wound care and give 10-14 days po Keflex 500 QID Thank you for this consultation Discussed Condition With Explained plan to patient D/W Kecia Gonzalez MD Jan 03, 2017 16:02
[2017-01-03] MEDS ORDERED: cefTRIAXone INJ 2,000 MG in SODIUM CHLORIDE 0.9% INJ 100 ML IV SCH (17:00)
[2017-01-03] MEDS ORDERED: COLLAGENASE OINT 30 GM TUBE TOPICAL SCH (17:00)
[2017-01-03] MEDS ORDERED: PHARMACY ORDERED LAB ONE (21:45)
[2017-01-04] MEDS: HEPARIN SODIUM - SQ 10,000 UNITS/ML VIAL SQ SCH (01:14)
[2017-01-04] MEDS: SODIUM CHLOR 0.9% 1000 ML INJ 1,000 ML IV SCH (01:16)
[2017-01-04 04:14] VITALS: BP 163/71; PULSE 40; RESP 16; TEMP 97.6; O2SAT 96
[2017-01-04 05:24] VITALS: BP 175/77; PULSE 35
[2017-01-04 06:03] VITALS: PULSE 67
[2017-01-04] MEDS ORDERED: SODIUM CHLORIDE FLUSH PRN IV FLUSH (06:30)
[2017-01-04 07:21] LABS: AUTOMATED NEUTROPHIL # 3.3 TH/MM3 (1.8-7.7); BASOPHIL % 0.7 % (0.0-2.0); EOSINOPHIL # 0.2 TH/MM3 (0-0.4); HEMATOCRIT 44.6 % (39.0-51.0); HEMO FLAGS DIFF FINAL; LYMPH % 27.9 % (9.0-44.0); LYMPHOCYTE # 1.5 TH/MM3 (1.0-4.8); MEAN CELL VOLUME 88.7 FL (80.0-100.0); MEAN CORPUSCULAR HEMOGLOBIN 30.5 PG (27.0-34.0); MEAN CORPUSCULAR HGB CONC 34.4 % (32.0-36.0); MONO % 8.2 % (0.0-8.0); NEUT % 60.2 % (16.0-70.0); PLATELET COUNT 178 TH/MM3 (150-450); RED BLOOD COUNT 5.03 MIL/MM3 (4.50-5.90); RED CELL DISTRIBUTION WIDTH 12.5 % (11.6-17.2); WHITE BLOOD COUNT 5.4 TH/MM3 (4.0-11.0)
[2017-01-04 07:38] LABS: ANION GAP 6 MEQ/L (5-15); AST (GOT) 21 U/L (15-37); BICARBONATE 29.7 MEQ/L (21.0-32.0); BLOOD UREA NITROGEN 9 MG/DL (7-18); CHLORIDE 107 MEQ/L (98-107); GLOMERULAR FILTRATION RATE 91 ML/MIN (>89); POTASSIUM 3.6 MEQ/L (3.5-5.1); SODIUM (NA) 143 MEQ/L (136-145)
[2017-01-04 07:42] LABS: ALKALINE PHOSPHATASE 99 U/L (45-117); ALT (GPT) 19 U/L (12-78); TOTAL BILIRUBIN ADULT 0.4 MG/DL (0.2-1.0)
[2017-01-04 08:09] VITALS: O2SAT 92
--- NOTE | 2017-01-04 08:36 | HHI.PR ---
Subjective History of Present Illness Patient feel better MRI negative for Osteomylitis. Infectious disease consulted. d/w RN. Kristine OK to discharge per ID. Review of Systems Integumentary Skin: Wounds Skin Remarks wound left lower extremity and redness Vitals/Results Intake & Output 01/03/17 01/03/17 01/04/17 14:59 22:59 06:59 Output Total 925 ml Balance -925 ml Output Urine Total 925 ml Vital Signs Vital Signs Date Time Temp Pulse Resp B/P Pulse Ox O2 Delivery O2 Flow Rate FiO2 01/04/17 07:52 01/04/17 06:03 67 01/04/17 05:24 35 175/77 01/04/17 04:14 97.6 40 16 163/71 96 01/03/17 23:44 97.5 40 18 152/70 95 01/03/17 22:35 97 01/03/17 19:39 97.4 52 18 154/77 98 01/03/17 15:47 98.6 48 16 154/75 98 01/03/17 11:28 98.4 53 16 145/72 97 01/03/17 09:58 21 CBC/BMP: 01/04/17 0635 01/04/17 0635 Lab Results Laboratory Tests Test 01/04/17 06:35 White Blood Count 5.4 TH/MM3 Red Blood Count 5.03 MIL/MM3 Hemoglobin 15.4 GM/DL Hematocrit 44.6 % Mean Corpuscular Volume 88.7 FL Mean Corpuscular Hemoglobin 30.5 PG Mean Corpuscular Hemoglobin 34.4 % Concent Red Cell Distribution Width 12.5 % Platelet Count 178 TH/MM3 Mean Platelet Volume 7.4 FL Neutrophils (%) (Auto) 60.2 % Lymphocytes (%) (Auto) 27.9 % Monocytes (%) (Auto) 8.2 % Eosinophils (%) (Auto) 3.0 % Basophils (%) (Auto) 0.7 % Neutrophils # (Auto) 3.3 TH/MM3 Lymphocytes # (Auto) 1.5 TH/MM3 Monocytes # (Auto) 0.4 TH/MM3 Eosinophils # (Auto) 0.2 TH/MM3 Basophils # (Auto) 0.0 TH/MM3 CBC Comment DIFF FINAL Differential Comment Sodium Level 143 MEQ/L Potassium Level 3.6 MEQ/L Chloride Level 107 MEQ/L Carbon Dioxide Level 29.7 MEQ/L Anion Gap 6 MEQ/L Blood Urea Nitrogen 9 MG/DL Creatinine 0.84 MG/DL Estimat Glomerular Filtration 91 ML/MIN Rate Random Glucose 87 MG/DL Calcium Level 8.4 MG/DL Total Bilirubin 0.4 MG/DL Aspartate Amino Transf 21 U/L (AST/SGOT) Alanine Aminotransferase 19 U/L (ALT/SGPT) Alkaline Phosphatase 99 U/L Total Protein 6.5 GM/DL Albumin 3.0 GM/DL Physical Exam General General Appearance: Well Developed, Well Nourished, No Acute Distress, Comfortable Eyes Eye Exam: Sclera White, Extraocular Movement Intact Throat Throat Exam: Oral Mucosa [place] & Moist, Oral Pharynx Normal Neck Neck Exam: Neck Supple, Trachea Midline Pulmonary Resp Exam: Clear Bilaterally, Breath Sounds Equal Cardiology CV Exam: Regular, Normal Sinus Rhythm Gastrointestinal/Abdomen GI Exam: Soft, Non-Tender, Bowel Sounds Present Musculoskeletal MS Exam: Normal Tone Integumentary Skin Exam: Warm Skin Remarks wound left lower extremity erythema/ tenderness. Extremeties Extremities Exam: No Edema Extremeties Remarks wound left lower extremity erythema/ tenderness. Neurologic Neuro Exam: Alert, Awake, Oriented, Speech Clear, Moving All Extremities, No Focal Deficits Psychiatric Psych Exam: Appropriate Responses VTE Prophylaxis VTE Prophylaxis Meds: Heparin PUD Prophylasis PUD Prophylaxis: Protonix Assessment/Plan Assessment/Plan IMPRESSION 1. Cellulitis in the left lower extremity. 2. Wound on the left lower extremity. 3. Elevated C-reactive protein. PLAN. patient on IV Vancomycin. Added Zosyn Infectious disease input noted..checked an MRI of the left lower extremity shows no osteomyelitis. DVT Prophylaxis Heparin 5000 units subcutaneous BID and GI prophylaxis famotidine . Wound care following. ok to discharge home today. f/u with pcp/ GI/ Podiatry 1 week. Discussed Condition with: Patient Mark Abdalla MD Jan 04, 2017 08:36
[2017-01-04] MEDS: FAMOTIDINE 20 MG TAB PO SCH (09:00)
[2017-01-04] MEDS ORDERED: SODIUM CHLORIDE FLUSH BID IV FLUSH SCH (09:00)
--- NOTE | 2017-01-04 09:01 | PD.WOU.CON ---
Patient Intake Chief Complaint Nonhealing wound left leg Consult Requested by Dr. Boykin Reason for Consult Evaluation and treatment of wound left leg Primary Care Physician Mark Abdalla MD History of Present Illness Patient is a 71-year-old pleasant male who in November of this year injured his leg at work by hitting it on a pallet. He had a wound opened up and started draining. He applied peroxide to the area and washed it with an antibacterial soap. He has been showering. The wound is gone worse and he was sent to the emergency room to be admitted. His wound is growing group B strep. He is being getting Santyl ointment to the wound daily. According to the patient is redness and swelling has decreased since he's been in the hospital. I was asked to see the patient for treatment and follow-up of the wound. Coded Allergies: Iodine (Verified Allergy, Unknown, Anaphylaxis, 01/01/17) Shellfish (Verified Allergy, Unknown, Anaphylaxis, 01/01/17) Preferred Language to Discuss: Sami Barriers to Learning: None Teaching Method: Discussion Vital Signs Date Time Temp Pulse Resp B/P Pulse Ox O2 Delivery O2 Flow Rate FiO2 01/04/17 07:52 01/04/17 06:03 67 01/04/17 05:24 35 175/77 01/04/17 04:14 97.6 40 16 163/71 96 01/03/17 23:44 97.5 40 18 152/70 95 01/03/17 22:35 97 01/03/17 19:39 97.4 52 18 154/77 98 01/03/17 15:47 98.6 48 16 154/75 98 01/03/17 11:28 98.4 53 16 145/72 97 01/03/17 09:58 21 Pain scale used: 0-10 numeric scale Pain score: 4 Medications Current Medications Sodium Chloride 2 ml 2 ml UNSCH PRN IVF FLUSH AFTER USING IV ACCESS; Start 01/01 at 21:45; Stop 01/02/17 at 01:05; Status DC Vancomycin HCl 1000 mg/Sodium Chloride 250 ml @ 250 mls/hr ONCE ONCE IV Last administered on 01/01/17t 23:17; Start 01/01/17 at 22:45; Stop 01/01/17 at 23:44; Status DC Sodium Chloride (NS 1000 ml Inj) 1,000 ml @ 100 mls/hr Q10H IV Last administered on 01/04/17 01:16; Start 01/02/17 at 00:51 Sodium Chloride (NS Flush) 2 ml UNSCH PRN IV FLUSH FLUSH AFTER USING IV ACCESS ; Start 01/02/17 at 01:00; Stop 01/04/17 at 06:17; Status DC Sodium Chloride (NS Flush) 2 ml BID IV FLUSH Last administered on 01/03/17 21: 36; Start 01/02/17 at 09:00; Stop 01/04/17 at 06:17; Status DC Acetaminophen (Tylenol) 650 mg Q4H PRN PO TEMP > 100.4; Start 01/02/17 at 01:00 Ondansetron HCl (Zofran Inj) 4 mg Q6H PRN IVP NAUSEA OR VOMITING; Start at 01:00 Heparin Sodium (Porcine) (Heparin Inj) 5,000 units Q12H SQ Last administered on 01/04/17 01:14; Start 01/02/17 at 01:00 Naloxone HCl (Narcan Inj) 0.4 mg UNSCH PRN IV SEE LABEL COMMENTS; Start at 01:00 Sennosides (Senokot) 17.2 mg Q12H PRN PO MODERATE - SEVERE CONSTIPATION; Start 01/02/17 at 01:00 Bisacodyl 10 mg 10 mg DAILY PRN RECTAL SEVERE CONSITIPATION; Start 01/02/17 at 01:00 Pharmacy Profile Note (Vancomycin Consult Pharmacy) 0 ml @ 0 mls/hr UNSCH OTHER ; Start 01/02/17 at 01:00; Stop 01/03/17 at 15:45; Status DC Famotidine (Pepcid) 10 mg BID PO Last administered on 01/03/17 08:33; Start 01/02/17 at 09:00 Pneumococcal Polyvalent Vaccine 25 mcg 25 mcg ONCE ONCE IM Last administered on 01/02/17 10:52; Start 01/02/17 at 09:00; Stop 01/02/17 at 09:01; Status DC Vancomycin HCl/ Sodium Chloride (Vancomycin Inj/ NS 500 ml Inj) 515 ml @ 250 mls/hr Q12H IV Last administered on 01/03/17 10:50; Start 01/02/17 at 10:00; Stop 01/03/17 at 15:45; Status DC Miscellaneous Information SPECIFIC LAB TO BE DRAWN:VANCOMYCIN TROUGH DATE TO... ONCE ONCE .XX ; Start 01/03/17 at 21:45; Stop 01/03/17 at 21:45; Status DC Gadodiamide 17 ml 17 ml STK-MED ONCE IV Last administered on 01/02/17 13:24; Start 01/02/17 at 13:24; Stop 01/02/17 at 13:25; Status DC Piperacillin Sod/ Tazobactam Sod 100 ml @ 200 mls/hr Q6H IV Last administered on 01/03/17 13:00; Start 01/03/17 at 14:00; Stop 01/03/17 at 15:45; Status DC Ceftriaxone Sodium/Sodium Chloride (Rocephin Inj/NS Inj) 100 ml @ 200 mls/hr Q24H IV Last administered on 01/03/17 16:53; Start 01/03/17 at 17:00 Collagenase (Santyl Oint) 1 applic DAILY TOPICAL Last administered on 01/03/17 16:53; Start 01/03/17 at 17:00; Stop 01/04/17 at 08:50; Status DC Sodium Chloride (NS Flush) 2 ml BID IV FLUSH ; Start 01/04/17 at 09:00 Sodium Chloride (NS Flush) 2 ml UNSCH PRN IV FLUSH FLUSH AFTER USING IV ACCESS ; Start 01/04/17 at 06:30 Past, Family & Social History Past Medical History PFSH Reviewed: Yes Review of Systems Constitutional: COMPLAINS OF: Good general health, DENIES: Pain Eyes: DENIES: Blurred/Double vision, Hx eye disease Ears/Nose/Mouth/Throat: DENIES: Ringing in ears, Change in hearing, Deafness/ hearing aid, Sore throat, Trouble swallowing Cardiovascular: COMPLAINS OF: Swelling legs / ankles Respiratory: DENIES: Frequent colds, Difficulty breathing, Cough (productive?) , Asthma / hay fever, Emphysema, TB Gastrointestinal: DENIES: Heartburn, Vomiting, Constipation, Diarrhea, Black Stools, Blood in stools, Peptic ulcer, Abdominal pain Genitourinary: DENIES: Renal disease, Dialysis, Freq or burning urination, Blood in urine, Difficulty in urination, Incontinence Musculoskeletal: DENIES: Leg pain (rest or walk), Back pain, Joint pain/swell/ dysarthr, Deformaties Integumentary: DENIES: Rash, Hx masses/lumps, Birthmrk/wart/lump/nodule, Slow to heal after cuts, Bleeding/bruising tendncy Neurological: DENIES: CVA/Stroke, Spinal Cord Injury, Seizures, Tremors, Numbness/tingling, Changes in sensation, Difficulty with balance Psychiatric: DENIES: Depression/anxiety, Change in memory, Insomnia Endocrine: DENIES: Thyroid disease, Heat/cold intolerance, Excessive thirst Hematologic/Lymphatic: DENIES: Blood borne disease, Anemia, Blood abnormalities Allergic/Immunologic: DENIES: Rheumatoid Arthritis, Skin/Food/Drug reaction, Lupus, Sickle Cell disease, Scleroderma, Vasculitis Wound Assessment Vascular Assessment R Dorsails Pedis: Palpable L Dorsails Pedis: Palpable R Posterior Tibial: Palpable L Posterior Tibial: Palpable Temperature of Left Extremity: Warm Color of Left Extremity: Red Sensation of Left Extremity: Present Temperature of Right Extremity: Warm Color of Right Extremity: WNL Sensation of Right Extremity: Present Extremities Evaluation: Edema Right, Edema Left Wound Information - Wound One Wound Location: wound of the left lower leg Wound Type: Venous Disease Classification: FT- full thickness Photo Taken: No Exudate: Moderate Exudate Type: Serosanguineous Debridement: No Fibrin Amount: Moderate Granulation Tissue Color: [place] Granulation Tissue Texture: Firm Exposed: No exposed bone, muscle, tendon Eschar: Yes Odor: No Periwound Appearance: FINDINGS: Erythema Dressings: Maxorb Extra AG Lab and Radiology Results Laboratory Laboratory Tests Test 01/04/17 06:35 White Blood Count 5.4 TH/MM3 Red Blood Count 5.03 MIL/MM3 Hemoglobin 15.4 GM/DL Hematocrit 44.6 % Mean Corpuscular Volume 88.7 FL Mean Corpuscular Hemoglobin 30.5 PG Mean Corpuscular Hemoglobin 34.4 % Concent Red Cell Distribution Width 12.5 % Platelet Count 178 TH/MM3 Mean Platelet Volume 7.4 FL Neutrophils (%) (Auto) 60.2 % Lymphocytes (%) (Auto) 27.9 % Monocytes (%) (Auto) 8.2 % Eosinophils (%) (Auto) 3.0 % Basophils (%) (Auto) 0.7 % Neutrophils # (Auto) 3.3 TH/MM3 Lymphocytes # (Auto) 1.5 TH/MM3 Monocytes # (Auto) 0.4 TH/MM3 Eosinophils # (Auto) 0.2 TH/MM3 Basophils # (Auto) 0.0 TH/MM3 CBC Comment DIFF FINAL Differential Comment Laboratory Tests Test 01/03/17 01/04/17 04:44 06:35 Creatinine 0.84 MG/DL 0.84 MG/DL Estimat Glomerular Filtration 91 ML/MIN 91 ML/MIN Rate Sodium Level 143 MEQ/L Potassium Level 3.6 MEQ/L Chloride Level 107 MEQ/L Carbon Dioxide Level 29.7 MEQ/L Anion Gap 6 MEQ/L Blood Urea Nitrogen 9 MG/DL Random Glucose 87 MG/DL Calcium Level 8.4 MG/DL Total Bilirubin 0.4 MG/DL Aspartate Amino Transf 21 U/L (AST/SGOT) Alanine Aminotransferase 19 U/L (ALT/SGPT) Alkaline Phosphatase 99 U/L Total Protein 6.5 GM/DL Albumin 3.0 GM/DL Microbiology Date/Time Procedure Status Source Growth 01/01/17 21:45 Aerobic Blood Culture - Preliminary Resulted Blood Peripheral NO GROWTH IN 2 DAYS 01/01/17 21:45 Anaerobic Blood Culture - Preliminary Resulted Blood Peripheral NO GROWTH IN 2 DAYS 01/01/17 21:45 Gram Stain - Final Complete Wound Ankle 01/01/17 21:45 Wound Culture - Final Complete Group B Beta Strep 01/01/17 21:50 Aerobic Blood Culture - Preliminary Resulted Blood Peripheral NO GROWTH IN 2 DAYS 01/01/17 21:50 Anaerobic Blood Culture - Preliminary Resulted Blood Peripheral NO GROWTH IN 2 DAYS Radiology Last Impressions Lower Extremity MRI 01/02/17 0000 Signed Impressions: Service Date/Time: Monday, January 02, 2017 12:55 - CONCLUSION: There is nonspecific edema in the subcutaneous soft tissues along the medial left lower leg. The findings would suggest cellulitis. No evidence of osteomyelitis. No loculated fluid collections are demonstrated. Cirilo Garcia MD Ankle X-Ray 01/01/17 0000 Signed Impressions: Service Date/Time: Sunday, January 01, 2017 22:17 - CONCLUSION: No acute bony abnormality. Mild soft tissue swelling at the ankle. Matt Drake MD Assessment/Plan Problem List: (1) Delayed wound healing Status: Acute (2) Left leg cellulitis Status: Acute (3) Open wound of left lower leg Status: Acute (4) Chronic venous hypertension w ulceration Status: Acute Additional Plans & Procedures PLAN: This continue Santyl ointment. Start Maxorb extra AG. Patient to follow up with me next Sunday in the wound center. Okay to discharge from a podiatry standpoint on oral antibiotics. No showers or baths. Sponge bathe only. Problem Qualifiers (1) Open wound of left lower leg: Qualified Code: S81.802A - Open wound of left lower leg, initial encounter (2) Chronic venous hypertension w ulceration: Qualified Code: I87.312 - Chronic venous hypertension with ulcer involving left side Olayinka Fabian DPM Jan 04, 2017 09:01
[2017-01-04] MEDS ORDERED: CEPH500C PO (09:40)
--- NOTE | 2017-01-09 12:35 | MD ---
cc: MARK LANCASTER MD ADMISSION DATE: 01/01/2017 DISCHARGE DATE: 01/04/2017 Okay to discharge the patient. Condition at the time of discharge is satisfactory. Activity as tolerated. Diet, cardiac diet. ALLERGIES IODINE AND SHELLFISH. MEDICATIONS Include Keflex 500 mg p.o. q. 8-hour. FOLLOW UP INSTRUCTIONS The patient advised to follow with infectious disease pulmonary care doctor and podiatry within a week. ADMITTING DIAGNOSIS Cellulitis of the left lower extremity DISCHARGE DIAGNOSIS Cellulitis of left lower extremity improved. MRI of the leg done shows no osteomyelitis. The patient was given IV vancomycin and Zosyn. Infectious disease had seen the patient. Okay to discharge the patient on Keflex 500 mg p.o. t.i.d. for 14 days. Wound care has seen the patient during the hospital stay. HOSPITAL COURSE This is a 71-year-old male patient who came to my office and has a wound and cellulitis of the left lower extremity. I sent him to [facility]. The patient had an x-ray of the ankle that shows no acute bony abnormality. Mild soft tissue swelling at the ankle. MRI of the lower extremity done shows nonspecific edema in the subcutaneous soft tissue along the medial left lower leg. The finding would suggest a cellulitis. No evidence of osteomyelitis. No loculated fluid demonstrated. Wound culture grew group B strep and blood cultures time x2 negative for three days. The patient remained stable. No acute event happened. He was discharged in a satisfactory condition. Further details in the medical record. Mark Lancaster MD EA/VILLA /11:10 AM /12:18 PM
== END 2017-01-04 14:43 | disposition home or self-care (01) ==
LOC: NEPC 18:57 → NEDA 23:12 → NEPHCDU 01-02 01:53
PROVIDERS: ADMIT Family Medicine; ATTEND Family Medicine
DX: L03.116 Cellulitis of left lower limb (principal); R79.82 Elevated C-reactive protein (CRP); Z23 Encounter for immunization
CPT/HCPCS: 73610; 73720; 80048; 80053; 82565; 85025; 85652; 86140; 86403; 87040; 87070; 87205; 90732; 96361; 96365; 96366; 96372; 99285; A9579; G0009; G0378; J0696; J1644; J2543; J3370; J7030; J7040; J7050; 90471